=== PATIENT | female | born 1995 | race Caucasian/White ===

== ENCOUNTER 2016-11-14 09:20 | Emergency (ER) | payer OTHER ==
[~2016-11-14] VITALS: Ht 180.3 cm; Wt 113.6 kg
[2016-11-14 09:23] VITALS: BP 118/84; PULSE 97; TEMP 98.4
[2016-11-14] MEDS ORDERED: PROAIR HFA0.09 MG/AC IH (09:27)
[2016-11-14] MEDS ORDERED: NORCO 325 MG-51 TAB PO (10:33)
== END 2016-11-14 10:50 | disposition home or self-care (01) ==
LOC: COL.ER 09:20
DX: S30.23XA Contusion of vagina and vulva, initial encounter (principal); S30.814A Abrasion of vagina and vulva, initial encounter; J45.909 Unspecified asthma, uncomplicated; V19.9XXA Pedal cyclist (driver) (passenger) injured in unspecified traffic accident, initial encounter